=== PATIENT | female | born 1985 | race Caucasian/White ===

== ENCOUNTER 2016-12-05 19:02 | Inpatient (IN) | payer OTHER ==
[~2016-12-05] VITALS: Wt 100.0 kg
--- NOTE | ~2016-12-05 | WRIGHTHP ---
[place], [place] PATIENT HISTORY AND PHYSICAL EXAM NAME: NEO POSADA [facility] #: [id number] UNIT #: [id number] ROOM: 508 DOCTOR: LILLIANA PAINTING MD BIRTHDATE: [birth year] DOS: 12/06/2016 HISTORY OF PRESENT ILLNESS: This patient is a 31-year-old. The patient is not known to me, comes in with complaints of abdominal pain. 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 At 5:30, she started having severe abdominal pain in the umbilical area with knife-like pain going into the back, so by 5:45 she presented to the Emergency Room. She does not have any nausea, any emesis, any fever, any chills, any diarrhea, constipation. She got a little bit nauseous after admission. She had severe pain which is uncontrollable. In the Emergency Room, she had a workup including CT scan shows an ileus and she was admitted. This morning, she feels fine and is not having any complaints. Dr. Wilcox has already seen her and started her on a clear liquid diet. She tolerated the Jell-O without any problem. PAST MEDICAL HISTORY: Significant for, 1. CA of the uterus. The patient had a hysterectomy a year ago. This is a vaginal hysterectomy by Dr. Regalado in [place]. 2. Mild major depression. MEDICATIONS: None. SOCIAL HISTORY: Nonsmoker, does not use any alcohol. Again, works as a hairdresser. She lives at home. She has 4 young children. She is . FAMILY HISTORY: Significant for mother who is having multiple problems including high blood pressure, diabetes, history of . Father is healthy. She has 2 siblings, 1 sister is healthy, the other sister has history of DVT. PHYSICAL EXAMINATION: GENERAL: The patient is awake, alert and oriented, in no distress right now. VITAL SIGNS: Graphic trend shows a pressure of 118/70, pulse of 80, respirations 18, temperature 98.4. LUNGS: Diminished breath sounds. No wheezes, rales or rhonchi heard. HEART: Regular. ABDOMEN: Obese, soft, nontender. Bowel sounds are present and hypoactive. EXTREMITIES: Without any edema. ASSESSMENT AND PLAN: 1. This is a patient who presents with ileus. CT scan did not show any evidence of intestinal obstruction, some minimal inflammatory enteritis and a possibility of Crohn's is being raised. 2. Possible ileus. Clinically, the patient is already improving on medications and n.p.o. status with bowel rest. Dr. Wilcox does not feel the patient is a surgical candidate and is already started on a diet, we will advance it and plan is to discharge her to home. The patient is encouraged to have a GI workup as an outpatient. [place], [place] PATIENT HISTORY AND PHYSICAL EXAM [facility] [id number] UNIT #: [id number] ROOM: 508 DOCTOR: LILLIANA PAINTING MD BIRTHDATE: [birth year] LILLIANA PAINTING MD CM:HISPHYS:PATIENT HISTORY AND PHYSICAL EXAMINATION 1159 [id number] LILLIANA PAINTING MD 12/06/16 1309 interface
[~2016-12-05 19:02] MED LIST: ACETAMINOPHEN-O1 TAB PO; BACTRIM DS 8001 TA1 PO; CIPROFLOXACIN500 MG PO; COLACE100 MG PO; EFFEXOR XR75 M1 PO; FLINTSTONES1 CTB PO; HYDROCODONE BIT1 T11 PO; IBU800 M1 PO; IRON TABLETS325 MG PO; IRON50 MG PO; KEFLEX500 MG PO; LIDEX 0.05% CRE15 GM T; MACROBID100 M1 PO; MIRALAX POWDER17 G1 PO; MOTRIN800 MG PO; Motrin,Rufen800 MG PO; NAPROSYN500 MG PO; NKHM; ONDANSETRON HYDR4 M1 PO; PERCOCET 325 MG1 TA2 PO; PRENATAL1 TA1 PO; PYRIDIUM200 MG PO; TRAMADOL HCL50 MG PO; ULTRAM100 MG PO; VENLAFAXINE H37.5 M5 PO; VENLAFAXINE HYD75 M3 PO; ZOFRAN ODT4 MG SL; Zofran4 MG PO
[2016-12-05 19:10] VITALS: BP 140/85
[2016-12-05 19:24] LABS: BILIRUBIN NEGATIVE (NEGATIVE); BLOOD 2+ (NEGATIVE); CLARITY CLOUDY (CLEAR); COLOR YELLOW (YELLOW); GLUCOSE NEGATIVE (NEGATIVE); KETONE NEGATIVE (NEGATIVE); LEUKO ESTERASE NEGATIVE (NEGATIVE); NITRITE NEGATIVE (NEGATIVE); PH 6.5 (5.0-9.0); PROTEIN TRACE (NEGATIVE); SPECIFIC GRAVITY 1.025 (1.005-1.030); UROBILINOGEN 0.2 E.U./dl (0.2-1.0)
[2016-12-05 19:31] LABS: BACTERIA 3+; EPITHELIAL CELLS 20-25; RBC 0-2 rbc/hpf (0-2); URINE REFLEX COMMENT YES (NO)
[2016-12-05 20:06] LABS: BASO % 0.5 % (0.0-1.0); EOS # 0.3 10*3/uL (0.0-0.4); EOS % 4.6 % (1.0-4.0); HEMATOCRIT 37.7 % (37.0-47.0); HEMOGLOBIN 12.7 g/dl (12.0-16.0); LYMPH # 2.8 10*3/uL (1.3-4.4); LYMPH % 37.4 % (27.0-41.0); MEAN CELL VOLUME 90.2 fl (81.0-99.0); MEAN CORPUSCULAR HGB 30.4 pg (27.0-31.0); MEAN CORPUSCULAR HGB CONC 33.7 g/dl (33.0-37.0); MEAN PLATELET VOLUME 11.1 fl (9.6-12.3); MONO # 0.5 10*3/uL (0.1-1.0); MONO % 7.1 % (3.0-9.0); NEUT # 3.7 10*3/uL (2.3-7.9); NEUT % 50.3 % (47.0-73.0); PLATELET COUNT AUTOMATED 321 10*3/uL (130-400); RED BLOOD COUNT 4.18 10*6/uL (4.10-5.10); RED CELL DISTRI WIDTH 12.5 % (0-14.5); WHITE BLOOD COUNT 7.4 10*3/uL (4.8-10.8)
[2016-12-05 20:33] LABS: ALBUMIN 3.6 gm/dl (3.1-4.5); ALKALINE PHOSPHATASE 76 U/L (45-117); BILIRUBIN, TOTAL 0.3 mg/dl (0.2-1.0); BUN 15 mg/dl (7-24); C-REACTIVE PROTEIN 0.43 MG/DL (0-0.3); CARBON DIOXIDE 31 mmol/L (21-32); CHLORIDE 105 mmol/L (98-107); EST GLOM FILT AFRICAN AMERICAN > 60 ml/min; GLUCOSE 85 mg/dL (65-99); POTASSIUM 4.2 mmol/L (3.5-5.1); SGOT/AST 12 IU/L (3-35); SGPT/ALT 17 U/L (12-78); SODIUM 141 mmol/L (136-145); TOTAL PROTEIN 7.9 gm/dL (6.4-8.2)
[2016-12-05 22:48] VITALS: BP 108/62
[2016-12-06 01:00] VITALS: BP 116/58
[2016-12-06 08:00] VITALS: BP 118/70
[2016-12-06 12:00] VITALS: BP 107/68
[2016-12-06 16:00] VITALS: BP 121/61
== END 2016-12-06 17:30 | disposition home or self-care (01) | DRG 390 ==
LOC: ED 19:02 → 5E 12-06 00:30 → EDHOLD 12-06 00:30 → 5E 12-06 00:36
PROVIDERS: Emergency Medicine Emergency Medical Services; Physician Assistant
DX: K56.7 Ileus, unspecified (principal); F32.9 Major depressive disorder, single episode, unspecified; Z90.710 Acquired absence of both cervix and uterus; Z85.42 Personal history of malignant neoplasm of other parts of uterus; Z82.49 Family history of ischemic heart disease and other diseases of the circulatory system; Z83.3 Family history of diabetes mellitus; Z79.899 Other long term (current) drug therapy; Z98.51 Tubal ligation status

== ENCOUNTER 2022-09-01 10:41 | Emergency (ER) | payer OTHER ==
[~2022-09-01] VITALS: Ht 175.2 cm; Wt 102.1 kg
[2022-09-01] MEDS ORDERED: SERTRALINE HYDR50 MG PO (12:26)
[2022-09-01] MEDS ORDERED: IBU800 M1 PO (13:12)
== END 2022-09-01 13:23 | disposition home or self-care (01) ==
LOC: ED 10:41
DX: M25.521 Pain in right elbow (principal); Z79.899 Other long term (current) drug therapy; Z98.51 Tubal ligation status